=== PATIENT | female | born 1980 | race Caucasian/White ===

== ENCOUNTER 2023-08-17 02:09 | Emergency (ER) | payer SELFPAY ==
[2023-08-17] VITALS (9 sets, daily range): BP systolic 99–136; BP diastolic 63–78; PULSE 94–129; RESP 14–24; TEMP 36.6–36.7; O2SAT 90–98; BMI 25.0
[2023-08-17] MEDS: IPRATROPIUM/ALBUTEROL 3 ML NEB 6 ML IH (02:10)
--- NOTE | 2023-08-17 02:12 | HMH.EDGENADL ---
Discharge Plan Disposition Patient Disposition: Home, Self-Care Prescriptions Prescriptions: No Action albuterol sulfate 90 mcg/actuation Hfa Aerosol Inhaler 1 puff INHALATION QID PRN (Reason: Asthma) Referrals Follow up/Referrals: Provider,Referral, [Primary Care Provider] - See instructions Activity Restrictions/Add. Instructions Additional Instructions/Restrictions: Please use albuterol inhaler and nebulizer solution as needed. Please take prednisone as prescribed for asthma exacerbation. Please follow-up with your primary care provider. Please return to the emergency department if you develop any new or worsening symptoms or become concerned for your health. Clinical Impressions Clinical Impression: Asthma with acute exacerbation Instructions Patient Instructions: Asthma -- Adult, Asthma -- Child Discharge ED Provider: Alonso Mulligan Adult HPI General Chief complaint: Asthma Stated complaint: SOA Time Seen by Provider: 08/17/23 02:12 History of Present Illness HPI narrative: 42-year-old female with history of asthma presents with asthma exacerbation. She reports that she has had a worsening cough over the last couple of days. She reports that she ran out of her albuterol inhaler and today has had a significant worsening of her breathing. EMS reports that she was outside, tripoding, satting low 80s on room air on their arrival. They gave her 125 Solu-Medrol IV, 1 DuoNeb and placed her on a nonrebreather. On arrival patient is dyspneic and unable to report full history. Related Data Home Medications Medication Instructions Recorded Confirmed albuterol sulfate 90 mcg/actuation 1 puff inhalation QID PRN Asthma 08/17/23 08/17/23 aerosol inhaler Allergies Allergy/AdvReac Type Severity Reaction Status Date / Time Penicillins [PENICILLINS] Allergy Unknown Verified 08/17/23 02:14 [facility] Disclaimer: The information contained in this section may have been updated after the patient was seen, as this information can be updated by other users. Social History Smoking Status: Former smoker alcohol intake: never current occupational status: other Travel in the last 8 weeks: None ROS Obtained: Yes All systems reviewed & no additional complaints except as documented Physical Exam General General appearance: alert and in distress (Respiratory) Head Head exam: atraumatic and normocephalic Eye Eye exam: Present normal appearance, PERRL and EOMI ENT ENT exam: Present normal oropharynx and normal external ear exam Neck Neck exam: Present normal inspection and full ROM Chest Chest inspection: Present normal inspection and symmetric chest wall rise; Absent tenderness Respiratory Respiratory exam: Present respiratory distress (Patient tripoding, decreased breath sounds, wheezing and prolonged expiratory phase noted bilaterally) and wheezes Cardiovascular Cardiovascular exam: Present normal rhythm and tachycardia Abdominal Exam Abdominal exam: Present soft; Absent distention, tenderness or guarding Extremities Exam Extremities exam: Present normal inspection; Absent edema or joint swelling Back Exam Back exam: Present normal inspection; Absent tenderness Neurological Exam Neurological exam: Present alert and oriented X3; Absent motor sensory deficit Psychiatric Psychiatric exam: Present normal affect and normal mood Skin Skin exam: Present warm, dry and normal color Lymphatic Lymphatic Findings: no adenopathy Medical Decision Making Medical Records Medical records reviewed: Yes I reviewed the patient's medical records. Jeff Inquiry Pt receiving controlled substance: No Jeff was queried for this patient: No Vital Signs: 08/17/23 02:10 08/17/23 02:10 08/17/23 02:12 Temperature 97.9 F Temperature Source Axillary Pulse Rate 129 H 120 H Pulse Rate [Left] 124 H Respiratory Rate 22 Blood Pressure Blood Pressure [Right Arm] 122/73 Blood Pressure Mean [Right Arm] 89 Blood Pressure Source Blood Pressure Source [Right Arm] Automatic Cuff Blood Pressure Position Blood Pressure Position [Right Arm] Sitting 02 Sat by Pulse Oximetry 95 Oxygen Delivery Method Non-Rebreather Oxygen Flow Rate (LPM) 08/17/23 02:30 08/17/23 02:30 08/17/23 03:34 Temperature Temperature Source Pulse Rate 121 H 122 H 124 H Pulse Rate [Left] Respiratory Rate 19 Blood Pressure 121/73 Blood Pressure [Right Arm] Blood Pressure Mean [Right Arm] Blood Pressure Source Blood Pressure Source [Right Arm] Blood Pressure Position Blood Pressure Position [Right Arm] 02 Sat by Pulse Oximetry 98 Oxygen Delivery Method Oxygen Flow Rate (LPM) 3 08/17/23 03:51 Temperature Temperature Source Pulse Rate 129 H Pulse Rate [Left] Respiratory Rate 24 Blood Pressure 127/71 Blood Pressure [Right Arm] Blood Pressure Mean [Right Arm] Blood Pressure Source Automatic Cuff Blood Pressure Source [Right Arm] Blood Pressure Position Sitting Blood Pressure Position [Right Arm] 02 Sat by Pulse Oximetry 93 L Oxygen Delivery Method Nasal Cannula Oxygen Flow Rate (LPM) 4 Lab Data Lab results reviewed: Yes I reviewed the patient's lab results. Lab Results 08/17/23 02:40: SARS-CoV-2 (PCR) Not detected, Influenza A Untype (PCR) Not detected, Influenza Type B (PCR) Not detected Orders (Tests/Meds): ED MEDICATIONS Discontinued Medications Generic Name Dose Route Start Last Admin Trade Name Martin PRN Reason Stop Dose Admin Albuterol/Ipratropium 6 ml 08/17/23 02:09 08/17/23 02:10 Ipratropium/Albuterol 3 Ml Neb IH 08/17/23 02:10 6 ml ONCE ONE Administration Magnesium Sulfate 2 gm in 50 mls @ 50 mls/hr 08/17/23 02:10 08/17/23 02:15 Magnesium Sulfate 2gm/50ml Premix IV 08/17/23 03:09 50 mls/hr ONCE ONE Administration Lactated Ringer's 1,000 mls @ 999 mls/hr 08/17/23 02:15 08/17/23 02:19 Lactated Ringer's 1000 Ml Bag IV 08/17/23 03:15 999 mls/hr .Q1H1M JUN Administration ORDERS Category Date Time Status CXR --portable [XR chest portable] Stat Exams 08/17/23 02:13 Completed Rapid PCR Covid and Flu A/B Stat Lab 08/17/23 02:40 Completed Medical Decision Narrative: 42-year-old female with history of asthma presents with worsening respiratory distress at home today, several days of cough prior, recently ran out of albuterol inhaler. History was obtained interactive discussion with patient, EMS. On arrival, patient is afebrile, tachycardic, hypoxic requiring nonrebreather, accessory muscle use noted, patient tripoding, wheezing diffusely with prolonged expiratory phase and poor air movement bilaterally. Differential includes but is not limited to asthma exacerbation, pneumonia, pneumothorax. Patient was given 1 DuoNeb and 125 IV Solu-Medrol by EMS, on arrival given 2 g IV mag and [id number] DuoNebs for symptomatic management and correction of underlying abnormalities. Workup initiated including chest x-ray COVID flu swab. On re-evaluation after DuoNeb's patient is improved, though still tachypneic. Improved air movement, still wheezing diffusely. Satting low 90s on 3 L nasal cannula. Patient initiated on continuous albuterol for 1 hour. Patient was placed in ED observation status at 3:30 AM after completion of albuterol nebulizer solution for continued cardiac monitoring, pulse oximetry, and oxygen supplementation with goal of avoiding potentially unnecessary admission. Laboratory workup independently interpreted by me and significant for negative COVID flu. Imaging independently interpreted by me and significant for possible mild hazy bilateral infiltrates, no focal opacity, read as normal by radiology. See radiology read for full review of final results. On further reassessment, patient was weaned off nasal cannula oxygen. She reports marked symptomatic improvement. On my interpretation of security software engineer, she is satting 90 to 92% on room air, remains mildly tachycardic with rates between 110 and 120. She is breathing comfortably, speaking full sentences, was able to ambulate without difficulty, post ambulatory sat of 90%. I had interactive discussion with patient regarding her presentation. We considered admission given borderline O2 sats, but patient reported that she felt good to go home and would return if anything change. Given this, patient was deemed stable for discharge. Observation status was discontinued at 6:30 AM. Total time in observation 3 hours. Patient was discharged with albuterol inhaler in hand, prescription for albuterol nebulizer, and prescription for prednisone. Given patient history, exam and workup, patient's presentation most likely represents acute asthma exacerbation.. Procedures Risk/Benefits of Procedure(s) Were Explained: Yes Critical Care Critical Care Time Critical Care Time: Yes Attestation: On 08/17/23, the high probability of a clinically significant, sudden or life threatening deterioration of the following system(s) respiratory required my full and direct attention, intervention and personal management. The time I documented below is in addition to time spent performing reported procedures but includes the following listed in this critical care notation. Total Time Total Critical Care Time: 45
--- NOTE | 2023-08-17 02:13 | XR_ITS ---
PROCEDURE INFORMATION: Exam: XR Chest Exam date and time: 08/17/2023 2:17 AM Age: 42 years old Clinical indication: Cough; Additional info: Cough, asthma exacerbation TECHNIQUE: Imaging protocol: Radiologic exam of the chest. Views: 1 view. COMPARISON: No relevant prior studies available. FINDINGS: Lungs: Normal. Pleural spaces: Unremarkable. No pleural effusion. No pneumothorax. Heart/Mediastinum: Normal. Bones/joints: No acute abnormality. IMPRESSION: No acute findings.
[2023-08-17] MEDS: MAGNESIUM SULFATE IN WATER 2 GM/50 ML PIGGYBACK IV (02:15)
[2023-08-17] MEDS: LACTATED RINGERS 1000ML 1,000 ML 999 ML IV (02:19)
--- NOTE | 2023-08-17 02:42 | PC.NURSE ---
NRB removed pt placed on 3L/nc per Dr Mulligan
[2023-08-17 02:44] LABS: Coronavirus 19, PCR Not Detected (NotDetected); Influenza A, PCR Not Detected (NotDetected); Influenza B, PCR Not Detected (NotDetected)
--- NOTE | 2023-08-17 03:46 | PC.NURSE ---
Pt ambulated to restroom
--- NOTE | 2023-08-17 03:53 | PC.NURSE ---
Pt winded when she returned from restroom, 83% on room air. 4L/nc applied, o2 94% HR 129 Dr Mulligan aware
--- NOTE | 2023-08-17 06:46 | PC.NURSE ---
Pt provided with prednisone and albuterol sulfate nebulizer solution paper script. Albuterol sulfate inhaler given to take home.
[2023-08-17] MEDS: AEROCHAMBER/OPTIHALER 1 UNIT MC (06:48)
== END 2023-08-17 06:30 | disposition home or self-care (01) ==
PROVIDERS: Emergency Provider Emergency Medicine
DX: J45.901 Unspecified asthma with (acute) exacerbation (principal); R00.0 Tachycardia, unspecified; R05.9 Cough, unspecified; Z87.891 Personal history of nicotine dependence; R06.02 Shortness of breath
CPT/HCPCS: 71045; 87636; 96365; 99285; J3475